=== PATIENT | female | born 1955 | race Caucasian/White ===

== ENCOUNTER 2018-06-08 08:00 | Outpatient (CLI) | payer MEDICARE ==
[2013-02-09 13:03] VITALS: BMI 50.9
[~2018-06-08 08:00] MED LIST: ALDACTONE25 MG PO; ASPIRIN325 MG PO; BAYER CHEWABLE81 MG PO; BETAPACE160 MG; BUMEX2 MG PO; CARDIZEM LA360 MG PO; COZAAR50 MG PO; GLUCOPHAGE1000 MG PO; HYDROCHLOROTHIA25 MG PO; K-DUR20 MEQ PO; LANTUS SOL100 UNIT/1; LASIX40 MG PO; LEVOTHROID75 MCG PO; LOPRESSOR50 MG PO; MOBIC7.5 MG PO; PLAVIX75 MG PO; SLOW RELEASE I160 MG; ZYLOPRIM100 MG
== END 2018-06-08 09:00 | disposition home or self-care (01) ==
LOC: D.MAMMO 08:00
DX: N64.89 Other specified disorders of breast (principal)